=== PATIENT | female | born 1945 | race Hispanic/Latino ===

== ENCOUNTER → 2017-07-24 | Outpatient (CLI) | payer OTHER ==
--- NOTE | 2017-07-24 13:54 | Diagnostic Imaging Report ---
PROCEDURE:UPPER GI W/SMALL BOWL FOLLOW-THROUGH. COMPARISON:None. INDICATION:Small bowel obstruction TECHNIQUE:Routine contrast upper GI with single-contrast small bowel follow-through was performed using thin and thick barium, and effervescent crystals. Fluoroscopy time: 2.5 minutes. Cumulative air kerma: 144.95 mGy. Small bowel follow-through time 3 hours. FINDINGS: Upper GI: Normal esophageal motility and contour. Trace gastroesophageal reflux to the midesophagus. Mild occasional mid esophageal spasm. Normal stomach and duodenal sweep. Small bowel follow-through: Normal passage of enteric contrast. Normal mucosal contour, and small bowel caliber and transit time. No conspicuous ulcer, polyp, stricture or fistula. CONCLUSION: 1. Mild gastroesophageal reflux. 2. No conspicuous small bowel abnormality. Dictated by: Eddy Kong M.D. on 07/24/2017 at 13:54 Electronically approved by: Eddy Kong M.D. on 07/24/2017 at 13:54
== END ==
LOC: DX 07:43
PROVIDERS: ATTEND Internal Medicine Gastroenterology
DX: K56.50 Intestinal adhesions [bands], unspecified as to partial versus complete obstruction (principal); K21.9 Gastro-esophageal reflux disease without esophagitis; E66.3 Overweight; Z68.25 Body mass index [BMI] 25.0-25.9, adult
CPT/HCPCS: 74249